=== PATIENT | female | born 1940 | race Caucasian/White ===

== ENCOUNTER 2019-03-13 03:29 | Inpatient (IN) | END 2019-03-15 14:15 | disposition home or self-care (01) | DRG 175 | DX: I26.99 Other pulmonary embolism without acute cor pulmonale (principal); J18.1 Lobar pneumonia, unspecified organism; J47.0 Bronchiectasis with acute lower respiratory infection; I16.9 Hypertensive crisis, unspecified; M31.6 Other giant cell arteritis; E66.9 Obesity, unspecified; Z79.52 Long term (current) use of systemic steroids; Z68.38 Body mass index [BMI] 38.0-38.9, adult; G47.33 Obstructive sleep apnea (adult) (pediatric); E78.5 Hyperlipidemia, unspecified; I16.0 Hypertensive urgency; Z88.1 Allergy status to other antibiotic agents; Z90.710 Acquired absence of both cervix and uterus; Z87.891 Personal history of nicotine dependence; Z79.82 Long term (current) use of aspirin; Z71.3 Dietary counseling and surveillance; R59.0 Localized enlarged lymph nodes; M19.90 Unspecified osteoarthritis, unspecified site; N32.81 Overactive bladder; E03.9 Hypothyroidism, unspecified ==

== ENCOUNTER 2019-03-16 09:16 | Inpatient (IN) | payer OTHER ==
[~2019-03-16] VITALS: Ht 171.4 cm; Wt 103.4 kg
[~2019-03-16 09:16] MED LIST: ALBU6.7H9 IH; APIX5TAB PO; ASPI81TA31 PO; CALC-1026 PO; CARV6.252 PO; CHOL100034 PO; COLC0.6C3 PO; CRAN500T2 PO; CYAN10009 PO; ESMOLOL HCL 100 MG/10 ML VIAL IV ONE; EVOL140S2 SQ; FLUT1BLS6 IH; GLUC-128 PO; HYDR28CR48 TP; IRR STERIL WATER FOR IRR 1000 ML BOTTLE IR ONE; IV LACTATED RINGERS SOLUTION 1,000 ML BAG IV ONE; LEVO500T2 PO; LIDOCAINE-MPF 2% 5 ML VIAL IJ ONE; MAGN250T10 PO; MELA3TAB54 PO; MULT-1160 PO; NIFE30TA7 PO; OLME40TA12 PO; OXYB-58 PO; PANT20TA2 PO; PRED10TA PO; PROPOFOL 200 MG/20 ML BOTTLE IV ONE; PYRI100T6 PO; SENN-92 PO; SERT25TA PO; TURM1TAB PO; VIT1CAPS27 PO; [UNRECOGNIZED DRUG - CODE] PO; [UNRECOGNIZED DRUG - OTHER]
--- NOTE | 2019-03-16 10:06 | NUR ---
is at bedside, MSE in progress, pending orders
[2019-03-16 10:33] LABS: BASOPHILS # (AUTO) 0.1 K/uL (0.0-8.0); BASOPHILS % (AUTO) 0.7 % (0.0-2.0); EOSINOPHILS # (AUTO) 0.2 K/uL (0.0-0.7); EOSINOPHILS % (AUTO) 1.9 % (0.0-7.0); HEMATOCRIT 35.6 % (31.2-41.9); HEMOGLOBIN 11.5 g/dL (10.9-14.3); LYMPHOCYTES # (AUTO) 1.9 K/uL (20.0-40.0); LYMPHOCYTES % (AUTO) 21.5 % (20.5-51.5); MEAN CORPUSCULAR HEMOGLOBIN 27.6 uug (24.7-32.8); MEAN CORPUSCULAR HGB CONC 32 g/dL (32.3-35.6); MEAN CORPUSCULAR VOLUME 85.8 fL (75.5-95.3); MONOCYTES # (AUTO) 1.1 K/uL (2.0-10.0); MONOCYTES % (AUTO) 12.4 % (0.0-11.0); NEUTROPHILS # (AUTO) 5.7 K/uL (1.8-8.9); NEUTROPHILS % (AUTO) 63.5 % (38.5-71.5); PLATELET COUNT (AUTO) 241 K/uL (179-408); RED BLOOD CELL COUNT(AUTO) 4.15 MIL/uL (3.63-4.92)
[2019-03-16 10:39] LABS: CREATININE 0.8 mg/dL (0.6-1.3); POTASSIUM 3.4 mmol/L (3.5-5.1)
--- NOTE | 2019-03-16 10:42 | NUR ---
Large bloody BM with clots seen, MD is aware.
[2019-03-16 10:45] LABS: BILIRUBIN,DIRECT 0.1 mg/dL (0.0-0.2); BILIRUBIN,TOTAL 0.2 mg/dL (0.2-1.0); TOTAL PROTEIN, SERUM 6.8 g/dL (6.4-8.2)
--- NOTE | 2019-03-16 10:48 | NUR ---
[facility] OPERATOR Kerzuma is here.
--- NOTE | 2019-03-16 11:10 | NUR ---
Dr Reilly wants CT scan done 1st before sending patient to floor. Patient was updated with the plan of care.
[2019-03-16 11:45] VITALS: BP 161/65
--- NOTE | 2019-03-16 11:55 | NUR ---
ADMITTED VIA [facility]. ORIENTED TO SURROUNDINGS.
[2019-03-16] MEDS ORDERED: ONDANSETRON 4 MG/2 ML VIAL IV PRN (12:15)
[2019-03-16] MEDS ORDERED: Z GUARD REMEDY PASTE 57 GM TUBE TOP PRN (12:15)
[2019-03-16] MEDS ORDERED: ZOLPIDEM 5 MG TABLET PO PRN (12:15)
[2019-03-16] MEDS ORDERED: ACETAMINOPHEN 325 MG TABLET PO PRN (12:15)
[2019-03-16] MEDS ORDERED: MAGNESIUM HYDROXIDE 30 ML LIQUID UDC PO PRN (12:15)
[2019-03-16] MEDS ORDERED: HYDROCODONE/APAP 5-325MG TABLET PO PRN (12:15)
[2019-03-16] MEDS ORDERED: ALBUTEROL SULFATE 8 GM HFA.AER.AD IH SCH (12:30)
[2019-03-16] MEDS ORDERED: ALBUTEROL SULFATE 2.5 MG/3 ML NEBU NEB PRN (14:15)
[2019-03-16 16:05] LABS: *BILIRUBIN,URIN NEGATIVE (NEGATIVE); *BLOOD, URINE NEGATIVE (NEGATIVE); *CLARITY,URINE CLEAR (CLEAR); *COLOR,URINE YELLOW (YELLOW); *KETONES,URINE NEGATIVE (NEGATIVE); *UROBILINOGEN,URINE 0.2 E.U./dl (NORMAL); LEUKOCYTE ESTERASE ,URINE NEGATIVE (NEGATIVE); NITRITE, URINE NEGATIVE (NEGATIVE); PH,URINE 7.5 (5.0-8.0); UGLUCOSE NEGATIVE (NEGATIVE)
[2019-03-16] MEDS ORDERED: IRR STERIL WATER FOR IRR 1000 ML BOTTLE IR ONE (16:35)
[2019-03-16] MEDS ORDERED: PROPOFOL 200 MG/20 ML BOTTLE IV ONE (16:35)
[2019-03-16] MEDS ORDERED: ESMOLOL HCL 100 MG/10 ML VIAL IV ONE (16:35)
[2019-03-16] MEDS ORDERED: IV LACTATED RINGERS SOLUTION 1,000 ML BAG IV ONE (16:35)
[2019-03-16] MEDS ORDERED: LIDOCAINE-MPF 2% 5 ML VIAL IJ ONE (16:35)
[2019-03-16] MEDS ORDERED: HYDROCORTISONE 1% RECTAL CREAM 28.35 GM TUBE RC SCH (17:00)
[2019-03-16] MEDS ORDERED: Medication Not On Formulary EA (Colchicine 0.6 MG) PO SCH (17:00)
[2019-03-16] MEDS: levoFLOXacin 500 MG TABLET PO SCH (18:28)
[2019-03-16] MEDS: COLCHICINE 0.6 MG TABLET PO SCH (18:28)
[2019-03-16] MEDS: CARVEDILOL 6.25 MG TABLET PO SCH (18:28)
--- NOTE | 2019-03-16 20:00 | NUR ---
RECEIVED PATIENT AWAKE IN BED. PATIENT IS A/O X4. VS WNL. ON TELE SR. DENIES ANY PAIN OR DISCOMFORT AT THIS TIME. NO RESP. DISTRESS NOTED. H/L INTACT AND PATENT, NOTED TO RIGHT WRIST. CALL LIGHT IN REACH. ALL NEEDS ATTENDED. WILL CONTINUE TO MONITOR AND ASSESS.
[2019-03-16 20:19] VITALS: BP 130/52
[2019-03-16] MEDS: MELATONIN 3 MG TABLET PO SCH (20:27)
[2019-03-16] MEDS: SERTRALINE HCL 50 MG TABLET PO SCH (20:27)
[2019-03-16] MEDS ORDERED: Medication Not On Formulary EA (Olmesartan Medoxomil (Benicar) 40 MG) PO SCH (21:00)
[2019-03-16] MEDS ORDERED: Medication Not On Formulary EA (Sertraline Hcl (Zoloft) 25 MG) PO SCH (21:00)
[2019-03-17 00:40] VITALS: BP 179/82
--- NOTE | 2019-03-17 00:45 | NUR ---
PATIENTS BP 179/82 ON LEFT ARM. CALLED OUT TO DR. MAR FOR FURTHER ORDERS. ALL NEEDS ATTENDED. WILL CONTINUE TO MONITOR AND ASSESS BP.
[2019-03-17] MEDS ORDERED: LOSARTAN POTASSIUM 50 MG TABLET PO ONE (01:00)
[2019-03-17] MEDS ORDERED: NIFEdipine XL 60 MG TABSR PO ONE (01:00)
--- NOTE | 2019-03-17 01:05 | NUR ---
PATIENT GIVEN COZAAR 100MG PO AND PROCARDIA XL 60MG PO X1 PER DR. MAR. PATIENT DENIES ANY CHEST PAIN OR DISCOMFORT. PATIENT IS ASYMPTOMATIC. WILL CONTINUE TO MONITOR AND ASSESS.
--- NOTE | 2019-03-17 02:55 | NUR ---
PATIENTS BLOOD PRESSURE STILL ELEVATED. LEFT ARM 218/89 AND RIGHT ARM 174/66. PATIENT IS AWAKE AND ALERT. DENIES CHEST PAIN. ON TELE SR. CALLED OUT TO DR. MAR FOR FURTHER ORDERS. ALL NEEDS ATTENDED.
[2019-03-17] MEDS ORDERED: CLONIDINE HCL 0.1 MG TABLET PO PRN (03:00)
--- NOTE | 2019-03-17 03:05 | NUR ---
PATIENT GIVEN CLONIDINE 0.1MG PO PRN FOR ELEVATED BP. PATIENT GIVEN NORCO 1 TAB PO PRN FOR BACK PAIN. ALL NEEDS ATTENDED. WILL CONTINUE TO MONITOR AND ASSESS.
--- NOTE | 2019-03-17 04:45 | NUR ---
PATIENTS BLOOD PRESSURE 146/62. ALL OTHER VSS. DENIES PAIN. NORCO EFFECTIVE. ALL NEEDS ATTENDED. WILL CONTINUE TO MONITOR AND ASSESS.
[2019-03-17 05:30] VITALS: BP 146/62
[2019-03-17 06:36] LABS: BASOPHILS % (AUTO) 0.4 % (0.0-2.0); EOSINOPHILS # (AUTO) 0.2 K/uL (0.0-0.7); HEMATOCRIT 35.5 % (31.2-41.9); HEMOGLOBIN 11.6 g/dL (10.9-14.3); LYMPHOCYTES # (AUTO) 1.6 K/uL (20.0-40.0); LYMPHOCYTES % (AUTO) 16.8 % (20.5-51.5); MEAN CORPUSCULAR HEMOGLOBIN 28.4 uug (24.7-32.8); MEAN CORPUSCULAR HGB CONC 33 g/dL (32.3-35.6); MEAN CORPUSCULAR VOLUME 87.1 fL (75.5-95.3); MONOCYTES # (AUTO) 1.2 K/uL (2.0-10.0); MONOCYTES % (AUTO) 12.4 % (0.0-11.0); NEUTROPHILS # (AUTO) 6.5 K/uL (1.8-8.9); NEUTROPHILS % (AUTO) 68.4 % (38.5-71.5); PLATELET COUNT (AUTO) 226 K/uL (179-408); RED BLOOD CELL COUNT(AUTO) 4.08 MIL/uL (3.63-4.92); WHITE BLOOD COUNT (AUTO) 9.5 K/uL (3.8-11.8)
--- NOTE | 2019-03-17 06:45 | NUR ---
patient asleep in bed. vss.
[2019-03-17 06:46] LABS: CREATININE 0.7 mg/dL (0.6-1.3); MAGNESIUM 2.1 mg/dL (1.8-2.4); PHOSPHOROUS 4.2 mg/dL (2.5-4.9); POTASSIUM 3.7 mmol/L (3.5-5.1)
--- NOTE | 2019-03-17 07:20 | NUR ---
RECEIVED PATIENT SLEEPING IN BED. NO ACUTE DISTRESS NOTED. BED IN LOWEST POSITION, SIDE RAILS UP X2, CALL LIGHT WITHIN REACH. WILL CONTINUE TO MONITOR.
[2019-03-17] MEDS: PANTOPRAZOLE SODIUM 40 MG VIAL IV SCH (08:50)
[2019-03-17] MEDS: COLCHICINE 0.6 MG TABLET PO SCH ×2 (08:51→17:15)
[2019-03-17] MEDS: NIFEdipine XL 30 MG TABSR PO SCH (08:51)
[2019-03-17] MEDS: predniSONE 10 MG TABLET PO SCH (08:51)
[2019-03-17] MEDS: CALCIUM CARBONATE 500 MG TABLET PO SCH (08:52)
[2019-03-17] MEDS: CHOLECALCIFEROL 1,000 UNIT TABLET PO SCH (08:52)
[2019-03-17] MEDS: CYANOCOBALAMIN 1,000 MCG TABLET PO SCH (08:52)
[2019-03-17] MEDS: BETA CAROTENE/VIT C & E/MIN TABLET PO SCH (08:52)
[2019-03-17] MEDS: levoFLOXacin 500 MG TABLET PO SCH (08:52)
[2019-03-17] MEDS: LOSARTAN POTASSIUM 50 MG TABLET PO SCH (08:52)
[2019-03-17] MEDS: CARVEDILOL 6.25 MG TABLET PO SCH ×2 (08:52→17:17)
[2019-03-17] MEDS: OXYBUTYNIN XL 5 MG TABSR PO SCH (08:52)
[2019-03-17] MEDS: MAGNESIUM OXIDE 250 MG TABLET PO SCH (08:53)
[2019-03-17] MEDS: PYRIDOXINE HCL 100 MG TABLET PO SCH (08:53)
[2019-03-17] MEDS ORDERED: Medication Not On Formulary EA (Cholecalciferol (Vitamin D3) (Vitamin D3 CHEW.TAB) 1,000 PO SCH (09:00)
[2019-03-17] MEDS ORDERED: Medication Not On Formulary EA (Vit C/Vite Ac/Lut/Copper/Znox (Preservision Lutein Softg PO SCH (09:00)
[2019-03-17] MEDS ORDERED: FLAXSEED 1000 MG PO SCH (09:00)
[2019-03-17] MEDS ORDERED: Medication Not On Formulary EA (Multivits-Min/Iron/FA/Lutein (Centrum Silver Women Table PO SCH (09:00)
[2019-03-17] MEDS ORDERED: CRANBERRY EXTRACT PO SCH (09:00)
[2019-03-17] MEDS ORDERED: [UNRECOGNIZED DRUG - OTHER] PO SCH (09:00)
[2019-03-17 11:12] VITALS: BP 153/62
[2019-03-17] MEDS ORDERED: IOHEXOL 350 100 ML INFUS..BTL ONE (11:33)
[2019-03-17] MEDS ORDERED: SWABABLE VALVE TRANSFER SET EA MC ONE (11:34)
[2019-03-17] MEDS ORDERED: IV NORMAL SALINE 250 ML IV ONE (11:34)
[2019-03-17 15:10] VITALS: BP 142/55
--- NOTE | 2019-03-17 18:27 | NUR ---
PATIENT RESTED INTERMITTENTLY THROUGHOUT DAY. NO ACUTE DISTRESS NOTED. PATIENTS BLOOD PRESSURE UNDER CONTROL DURING MY SHIFT. PATIENT DENIES PAIN AND DISCOMFORT. SAFETY MEASURES PROVIDED. WILL ENDORSE TO ONCOMING NURSE.
--- NOTE | 2019-03-17 19:20 | NUR ---
Received patient lying in bed. AAOX4. In no acute distress. Denies any pain or SOB. On O2 at 2LPM via NC in place. Denies any bleeding. IV site on right wrist intact and patent. NSR on tele at 61/min. Needs assessed and attended to. Safety measure initiated and call broussard within reached.
[2019-03-17 20:17] VITALS: BP 146/60
[2019-03-17] MEDS: MELATONIN 3 MG TABLET PO SCH (20:29)
[2019-03-17] MEDS: SERTRALINE HCL 50 MG TABLET PO SCH (20:30)
[2019-03-18 00:52] VITALS: BP 152/44
[2019-03-18 05:37] VITALS: BP 155/62
--- NOTE | 2019-03-18 06:23 | NUR ---
AAOX4. In no acute distress. Denies any pain or SOB. On O2 at 2LPM via NC in place.O2 sat at 96%. No signs or symptoms of bleeding. IV site on right wrist intact and patent. NSR on tele at 66/min. Safety measure maintained and call broussard within reached.
--- NOTE | 2019-03-18 07:15 | NUR ---
RECEIVED PATIENT SLEEPING IN BED. NO ACUTE DISTRESS NOTED. BED IN LOWEST POSITION, SIDE RAILS UP X2, CALL LIGHT WITHIN REACH. WILL CONTINUE TO MONITOR.
[2019-03-18] MEDS: PANTOPRAZOLE SODIUM 40 MG VIAL IV SCH (08:50)
[2019-03-18] MEDS: predniSONE 10 MG TABLET PO SCH (08:51)
[2019-03-18] MEDS: BETA CAROTENE/VIT C & E/MIN TABLET PO SCH (08:51)
[2019-03-18] MEDS: levoFLOXacin 500 MG TABLET PO SCH (08:51)
[2019-03-18] MEDS: COLCHICINE 0.6 MG TABLET PO SCH ×2 (08:51→17:46)
[2019-03-18] MEDS: CHOLECALCIFEROL 1,000 UNIT TABLET PO SCH (08:51)
[2019-03-18] MEDS: CALCIUM CARBONATE 500 MG TABLET PO SCH (08:51)
[2019-03-18] MEDS: OXYBUTYNIN XL 5 MG TABSR PO SCH (08:51)
[2019-03-18] MEDS: CYANOCOBALAMIN 1,000 MCG TABLET PO SCH (08:51)
[2019-03-18] MEDS: PYRIDOXINE HCL 100 MG TABLET PO SCH (08:52)
[2019-03-18] MEDS: NIFEdipine XL 30 MG TABSR PO SCH (08:52)
[2019-03-18] MEDS: LOSARTAN POTASSIUM 50 MG TABLET PO SCH (08:52)
[2019-03-18] MEDS: MAGNESIUM OXIDE 250 MG TABLET PO SCH (08:53)
[2019-03-18] MEDS: CARVEDILOL 6.25 MG TABLET PO SCH ×2 (08:53→17:46)
[2019-03-18 10:34] LABS: BASOPHILS # (AUTO) 0.1 K/uL (0.0-8.0); BASOPHILS % (AUTO) 0.6 % (0.0-2.0); EOSINOPHILS # (AUTO) 0.2 K/uL (0.0-0.7); EOSINOPHILS % (AUTO) 2.2 % (0.0-7.0); HEMATOCRIT 37.9 % (31.2-41.9); HEMOGLOBIN 11.9 g/dL (10.9-14.3); LYMPHOCYTES # (AUTO) 1.7 K/uL (20.0-40.0); LYMPHOCYTES % (AUTO) 17.9 % (20.5-51.5); MEAN CORPUSCULAR HEMOGLOBIN 27.7 uug (24.7-32.8); MEAN CORPUSCULAR HGB CONC 31 g/dL (32.3-35.6); MEAN CORPUSCULAR VOLUME 88.1 fL (75.5-95.3); MONOCYTES # (AUTO) 1.2 K/uL (2.0-10.0); MONOCYTES % (AUTO) 12.3 % (0.0-11.0); NEUTROPHILS # (AUTO) 6.4 K/uL (1.8-8.9); PLATELET COUNT (AUTO) 238 K/uL (179-408); WHITE BLOOD COUNT (AUTO) 9.6 K/uL (3.8-11.8)
[2019-03-18 10:42] LABS: CREATININE 0.8 mg/dL (0.6-1.3); POTASSIUM 3.6 mmol/L (3.5-5.1)
[2019-03-18 10:47] LABS: BILIRUBIN,TOTAL 0.2 mg/dL (0.2-1.0); TOTAL PROTEIN, SERUM 6.7 g/dL (6.4-8.2)
[2019-03-18 11:13] VITALS: BP 124/58
[2019-03-18] MEDS ORDERED: GOLYTELY 4000 ML BOTTLE PO ONE (11:15)
--- NOTE | 2019-03-18 12:24 | NUR ---
WOUND CARE CONSULT: PT PRESENTS WITH LEFT LOWER LEG WOUND AND LEFT LOWER ABDOMINAL AREA WITH RASH, PRESENT ON ADMISSION. RECOMMENDATIONS MADE FOR RASH CARE AND DISCUSSED WITH NURSING STAFF. RECOMMEND DPM CONSULT FOR LEG WOUND. DR CORDERO NOTIFIED OF CONSULT REQUEST. PT IS AMBULATORY AND CONTINENT. WILL SEE PRN. MATA IN AGREEMENT WITH PLAN OF CARE. Addendum: 03/18/19 at 1225 by MARYLOU GUDINO RN Amended: Links added.
[2019-03-18 15:30] VITALS: BP 134/56
[2019-03-18] MEDS: CLOTRIMAZOLE 1% CREAM 30 GM TUBE TOP SCH (17:46)
--- NOTE | 2019-03-18 18:41 | NUR ---
PATIENT RESTED INTERMITTENTLY THROUGHOUT DAY. PATIENT SCHEDULED FOR COLONOSCOPY TOMORROW WITH DR. ALICIA. PATIENT STARTED ON GOLITLY AND NPO AFTER LUNCH. PATIENTS BLOOD PRESSURE UNDER CONTROL. SAFETY MEASURES PROVIDED. WILL ENDORSE TO ONCOMING NURSE.
[2019-03-18 20:00] VITALS: BP 146/49
--- NOTE | 2019-03-18 20:00 | NUR ---
Received patient sitting in the chair inside her room. AAOX4. In no acute distress. Denies any pain or SOB. On O2 at 2LPM via NC in place. O2 sat at 92%. IV site on right wrist intact and patent. NSR on tele at 61/min. NPO status. For Colonoscopy michael. Safety measure initiated and call broussard within reached.
[2019-03-18] MEDS: MELATONIN 3 MG TABLET PO SCH (21:00)
[2019-03-18] MEDS: SERTRALINE HCL 50 MG TABLET PO SCH (21:01)
--- NOTE | 2019-03-18 23:30 | NUR ---
HANDS OFF RECEIVED FROM NOAH COOLEY. PT IN NO ACUTE DISTRESS. SAFETY AND COMFORT PROVIDED. WILL CONTINUE TO MONITOR.
[2019-03-19] VITALS: BP 152/80
[2019-03-19 04:37] VITALS: BP 142/63
--- NOTE | 2019-03-19 06:27 | NUR ---
PT SLEPT THROUGHOUT THE SHIFT. PT IN NO ACUTE DISTRESS. IV INTACT. PT CAN MAKE HER NEEDS KNOWN. SAFETY AND COMFORT PROVIDED. WILL ENDORSE TO INCOMING NURSE FOR CONTINUITY OF CARE.
[2019-03-19 06:39] LABS: BASOPHILS % (AUTO) 0.3 % (0.0-2.0); EOSINOPHILS # (AUTO) 0.2 K/uL (0.0-0.7); EOSINOPHILS % (AUTO) 2.3 % (0.0-7.0); HEMATOCRIT 35.8 % (31.2-41.9); HEMOGLOBIN 11.5 g/dL (10.9-14.3); LYMPHOCYTES # (AUTO) 2.1 K/uL (20.0-40.0); LYMPHOCYTES % (AUTO) 21.8 % (20.5-51.5); MEAN CORPUSCULAR HEMOGLOBIN 27.9 uug (24.7-32.8); MEAN CORPUSCULAR HGB CONC 32 g/dL (32.3-35.6); MEAN CORPUSCULAR VOLUME 86.9 fL (75.5-95.3); MONOCYTES # (AUTO) 1.2 K/uL (2.0-10.0); MONOCYTES % (AUTO) 12.2 % (0.0-11.0); NEUTROPHILS # (AUTO) 6.2 K/uL (1.8-8.9); NEUTROPHILS % (AUTO) 63.4 % (38.5-71.5); PLATELET COUNT (AUTO) 232 K/uL (179-408); RED BLOOD CELL COUNT(AUTO) 4.12 MIL/uL (3.63-4.92); WHITE BLOOD COUNT (AUTO) 9.8 K/uL (3.8-11.8)
[2019-03-19 06:57] LABS: CREATININE 0.7 mg/dL (0.6-1.3); MAGNESIUM 2.1 mg/dL (1.8-2.4); PHOSPHOROUS 3.4 mg/dL (2.5-4.9); POTASSIUM 3.1 mmol/L (3.5-5.1)
--- NOTE | 2019-03-19 07:25 | NUR ---
RECEIVED PATIENT SLEEPING IN BED. NO ACUTE DISTRESS NOTED. BED IN LOWEST POSITION, SIDE RAILS UP X2, CALL LIGHT WITHIN REACH, WILL CONTINUE TO MONITOR.
[2019-03-19] MEDS: LOSARTAN POTASSIUM 50 MG TABLET PO SCH (08:29)
[2019-03-19] MEDS: OXYBUTYNIN XL 5 MG TABSR PO SCH (08:30)
[2019-03-19] MEDS: levoFLOXacin 500 MG TABLET PO SCH (08:30)
[2019-03-19] MEDS: PANTOPRAZOLE SODIUM 40 MG VIAL IV SCH (08:30)
[2019-03-19] MEDS: NIFEdipine XL 30 MG TABSR PO SCH (08:30)
[2019-03-19] MEDS: COLCHICINE 0.6 MG TABLET PO SCH ×2 (08:30→17:00)
[2019-03-19] MEDS: CARVEDILOL 6.25 MG TABLET PO SCH ×2 (08:30→17:41)
[2019-03-19] MEDS: CALCIUM CARBONATE 500 MG TABLET PO SCH (08:32)
[2019-03-19] MEDS: BETA CAROTENE/VIT C & E/MIN TABLET PO SCH (08:32)
[2019-03-19] MEDS: MAGNESIUM OXIDE 250 MG TABLET PO SCH (08:32)
[2019-03-19] MEDS: CHOLECALCIFEROL 1,000 UNIT TABLET PO SCH (08:33)
[2019-03-19] MEDS: CYANOCOBALAMIN 1,000 MCG TABLET PO SCH (08:33)
[2019-03-19] MEDS: PYRIDOXINE HCL 100 MG TABLET PO SCH (08:33)
[2019-03-19] MEDS: predniSONE 10 MG TABLET PO SCH (08:33)
[2019-03-19] MEDS: CLOTRIMAZOLE 1% CREAM 30 GM TUBE TOP SCH ×2 (08:33→17:42)
[2019-03-19] MEDS ORDERED: SILVER SULFADIAZINE 1% CREAM 50 GM TP SCH (09:00)
[2019-03-19] MEDS: POTASSIUM CHLORIDE 50 ML IV SCH ×2 (11:51→13:01)
[2019-03-19 12:04] VITALS: BP 148/55
[2019-03-19 15:24] VITALS: BP 163/63
--- NOTE | 2019-03-19 18:18 | NUR ---
Patient rested intermittently throughout day. No acute distress noted. Patient denies pain and discomfort. Potassium replaced IV due to low potassium. Patient taken to surgery for colonoscopy. Safety measures provided. Will endorse to oncoming nurse.
--- NOTE | 2019-03-19 19:17 | NUR ---
Patient still on OR for Colonoscopy. Addendum: 03/19/19 at 1918 by NOAH ROTH RN Amended: Links added.
--- NOTE | 2019-03-19 20:09 | NUR ---
Patient case picker by [facility] via gurney accompanied by 2 paramedics and LENORA Dutton. Patient AOX1. In no acute distress. Report given to LENORA Spann. Addendum: 03/19/19 at 2012 by NOAH ROTH RN Amended: Links added.
--- NOTE | 2019-03-19 20:15 | NUR ---
Patient back to her room from Colonoscopy. RN Luisito Helton gave report: 1 sigmoid colon polyps found and biopsied, and internal hemorrhoid. Latest BP prior to coming back in the unit was 151/54. Patient AAOx4. In no acute distress. Denies any pain or SOB. Patient requested to find out if she will be discharge tonight. Ask KAREEM Guillermo, awaiting for reply.
[2019-03-19 20:51] VITALS: BP 146/54
[2019-03-19] MEDS ORDERED: IRR STERIL WATER FOR IRR 1000 ML BOTTLE IR ONE (21:19)
[2019-03-19] MEDS ORDERED: LIDOCAINE-MPF 2% 5 ML VIAL IJ ONE (21:19)
[2019-03-19] MEDS ORDERED: PROPOFOL 200 MG/20 ML BOTTLE IV ONE (21:19)
--- NOTE | 2019-03-19 21:20 | NUR ---
Patient AAOX4. In no acute distress. VS WNL. Patient discharge to home, picked up by her via private car. Discharge information and paper work sent to patient and states understanding of discharge instructions.
== END 2019-03-19 21:20 | disposition home or self-care (01) | DRG 393 ==
LOC: ER 09:16 → TELE3 11:19
PROVIDERS: ADMIT Student in an Organized Health Care Education/Training Program; ATTEND Student in an Organized Health Care Education/Training Program
PROC: 0DB68ZX Excision of Stomach, Via Natural or Artificial Opening Endoscopic, Diagnostic (ICD-10-PCS; principal; 2019-03-16)
PROC: 0DBN8ZX Excision of Sigmoid Colon, Via Natural or Artificial Opening Endoscopic, Diagnostic (ICD-10-PCS; 2019-03-19)
DX: K64.8 Other hemorrhoids (principal); J18.1 Lobar pneumonia, unspecified organism; J44.0 Chronic obstructive pulmonary disease with (acute) lower respiratory infection; J98.11 Atelectasis; E03.9 Hypothyroidism, unspecified; N32.81 Overactive bladder; E66.9 Obesity, unspecified; Z68.38 Body mass index [BMI] 38.0-38.9, adult; E87.6 Hypokalemia; G47.33 Obstructive sleep apnea (adult) (pediatric); K63.5 Polyp of colon; K29.70 Gastritis, unspecified, without bleeding; S81.812A Laceration without foreign body, left lower leg, initial encounter; W22.03XA Walked into furniture, initial encounter; Y92.013 Bedroom of single-family (private) house as the place of occurrence of the external cause; L90.9 Atrophic disorder of skin, unspecified; R26.2 Difficulty in walking, not elsewhere classified; Z90.710 Acquired absence of both cervix and uterus; Z86.711 Personal history of pulmonary embolism; M31.6 Other giant cell arteritis; Z79.52 Long term (current) use of systemic steroids; E78.5 Hyperlipidemia, unspecified; M19.90 Unspecified osteoarthritis, unspecified site; Z79.82 Long term (current) use of aspirin; I10 Essential (primary) hypertension
CPT/HCPCS: 36415; 70030-TC; 71275; 83690; 83735; 84100; 85025; 85730; 86850; 86900; 86901; 88342; 93005; A4217; A4663; C9113; G0378; J3480; J3490; J7030; J7050; J7120; J7512; Q9967